=== PATIENT | female | born 1975 | race Caucasian/White ===

== ENCOUNTER 2021-07-15 12:31 | Emergency (ER) | payer BC ==
[~2021-07-15] VITALS: Ht 167 cm; Wt 135.0 kg
[2021-07-15 13:10] LABS: BASOPHILS # (AUTO) 0.1 10^3/uL (0.0-0.1); BASOPHILS % (AUTO) 1 % (0-10); EOSINOPHILS # (AUTO) 0.4 10^3/uL (0.0-0.3); EOSINOPHILS % (AUTO) 5 % (0-10); HEMATOCRIT 39 % (35-52); HEMOGLOBIN 12.4 g/dL (11.5-16.0); LYMPHOCYTES # (AUTO) 2.1 10^3/uL (1.0-4.0); LYMPHOCYTES % (AUTO) 27 % (12-44); MEAN CORPUSCULAR HEMOGLOBIN 27 pg (25-34); MEAN CORPUSCULAR HGB CONC 32 g/dL (32-36); MEAN CORPUSCULAR VOLUME 84 fL (80-99); MEAN PLATELET VOLUME 12.4 fL (9.0-12.2); MONOCYTES # (AUTO) 0.7 10^3/uL (0.0-1.0); MONOCYTES % (AUTO) 9 % (0-12); NEUTROPHILS # (AUTO) 4.7 10^3/uL (1.8-7.8); NEUTROPHILS % (AUTO) 58 % (42-75); PLATELET COUNT 250 10^3/uL (130-400)
[2021-07-15 13:24] LABS: ALBUMIN 4.3 GM/DL (3.2-4.5); CHLORIDE 106 MMOL/L (98-107); POTASSIUM 3.9 MMOL/L (3.6-5.0); SODIUM 141 MMOL/L (135-145)
[2021-07-15 13:25] LABS: CALCIUM 9.1 MG/DL (8.5-10.1)
[2021-07-15 13:26] LABS: GLUCOSE 91 MG/DL (70-105); PROTHROMBIN TIME PATIENT 13.1 SEC (12.2-14.7); TOTAL PROTEIN 7.3 GM/DL (6.4-8.2)
--- NOTE | 2021-07-15 13:27 | ED Respiratory ---
General Chief Complaint: Respiratory Problems Stated Complaint: SOB/POSS PE Nursing Triage Note: ARRIVED VIA AMB TO ROOM 02 WITH COMPLAINTS OF SOA STARTING LAST NIGHT. PT HAD A RECENT TRIP TO [place]. Source: patient Exam Limitations: no limitations (TOMASZ SPAIN APRN) History of Present Illness Date Seen by Provider: Jul 15, 2021 Time Seen by Provider: 13:26 Initial Comments To ER with reports of sudden onset of shortness of breath that began last night. She was seen at urgent care this morning for the symptoms and reported that she had also just returned on from a flight to [place]. They were concerned about a pulmonary embolism and referred her here. She was not hypoxic or tachycardic at urgent care nor is she here. She denies fevers chills or cough. Denies any pre-existing lung conditions. She does report chronic swelling both lower extremities that is no worse or different than usual. No history of pulmonary embolism. She does not smoke. No oral contraceptive use. States that she gets bronchitis a couple of times over the course of the past few years and she did have a cough 4 times today which was nonproductive. Timing/Duration: constant Severity: moderate Associated Symptoms: shortness of breath (TOMASZ SPAIN APRN) Allergies and Home Medications Patient Home Medication List Home Medication List Reviewed: Yes (TOMASZ SPAIN APRN) Albuterol Sulfate (Proair Hfa) 1 Puff Puff, 2 PUFF IH Q4H PRN for SHORTNESS OF BREATH Prescribed by: TOMASZ SPAIN on 07/15/21 1421 Metoprolol Succinate (Toprol Xl) 50 Mg Tab.er.24h, 50 MG PO DAILY Prescribed by: TOMASZ SPAIN on 07/15/21 1428 Review of Systems Review of Systems Constitutional: see HPI EENTM: see HPI Respiratory: see HPI, dyspnea on exertion Cardiovascular: no symptoms reported Genitourinary: no symptoms reported Musculoskeletal: no symptoms reported Skin: no symptoms reported Psychiatric/Neurological: No Symptoms Reported Hematologic/Lymphatic: No Symptoms Reported Immunological/Allergic: no symptoms reported (TOMASZ SPAIN APRN) Past Ucooals-Xpgrne-Izfrtg Hx Patient Social History Alcohol Use?: No (TOMASZ SPAIN APRN) Immunizations Up To Date Second COVID19 Vaccination Jorge: UNKNOWN DATE COVID19 Vaccine Reinsurance Claim Analyst: PATRICIA (TOMASZ SPAIN APRN) Physical Exam Vital Signs - First Documented 07/15/21 12:40 Temp 36.3 Pulse 91 Resp 16 B/P (MAP) 162/92 (115) Pulse Ox 96 O2 Delivery Room Air (GHAZALA MAZARIEGOS MD) Capillary Refill : Less Than 3 Seconds (TOMASZ SPAIN APRN) Height: '" Weight: lbs. oz. kg; 48.00 BMI Method: General Appearance: WD/WN, no apparent distress Eyes: Bilateral Eye Normal Inspection, Bilateral Eye PERRL, Bilateral Eye EOMI HEENT: PERRL/EOMI Neck: non-tender, full range of motion Respiratory: normal breath sounds, no respiratory distress, no accessory muscle use, other (No accessory muscle use no tachypnea lungs are clear with good air movement) Cardiovascular: regular rate, rhythm, no murmur Gastrointestinal: normal bowel sounds, soft Neurologic/Psychiatric: alert, normal mood/affect, oriented x 3 Skin: normal color, warm/dry (TOMASZ SPAIN APRN) Progress/Results/Core Measures Suspected Sepsis SIRS Temperature: Pulse: 91 Respiratory Rate: 16 Laboratory Tests 07/15/21 13:00: White Blood Count 8.0 Blood Pressure 162 /92 Mean: 115 Laboratory Tests 07/15/21 13:00: Creatinine 0.83, INR Comment 1.0, Platelet Count 250, Total Bilirubin 0.5 (TOMASZ SPAIN APRN) Results/Orders Lab Results Laboratory Tests Test 07/15/21 13:00 Range/Units White Blood Count 8.0 4.3-11.0 10^3/uL Red Blood Count 4.67 3.80-5.11 10^6/uL Hemoglobin 12.4 11.5-16.0 g/dL Hematocrit 39 35-52 % Mean Corpuscular Volume 84 80-99 fL Mean Corpuscular Hemoglobin 27 25-34 pg Mean Corpuscular Hemoglobin Concent 32 32-36 g/dL Red Cell Distribution Width 14.5 10.0-14.5 % Platelet Count 250 130-400 10^3/uL Mean Platelet Volume 12.4 H 9.0-12.2 fL Immature Granulocyte % (Auto) 1 % Neutrophils (%) (Auto) 58 42-75 % Lymphocytes (%) (Auto) 27 12-44 % Monocytes (%) (Auto) 9 0-12 % Eosinophils (%) (Auto) 5 0-10 % Basophils (%) (Auto) 1 0-10 % Neutrophils # (Auto) 4.7 1.8-7.8 10^3/uL Lymphocytes # (Auto) 2.1 1.0-4.0 10^3/uL Monocytes # (Auto) 0.7 0.0-1.0 10^3/uL Eosinophils # (Auto) 0.4 H 0.0-0.3 10^3/uL Basophils # (Auto) 0.1 0.0-0.1 10^3/uL Immature Granulocyte # (Auto) 0.0 0.0-0.1 10^3/uL Prothrombin Time 13.1 12.2-14.7 SEC INR Comment 1.0 0.8-1.4 D-Dimer 0.46 0.00-0.49 UG/ML Sodium Level 141 135-145 MMOL/L Potassium Level 3.9 3.6-5.0 MMOL/L Chloride Level 106 98-107 MMOL/L Carbon Dioxide Level 25 21-32 MMOL/L Anion Gap 10 5-14 MMOL/L Blood Urea Nitrogen 17 7-18 MG/DL Creatinine 0.83 0.60-1.30 MG/DL Estimat Glomerular Filtration Rate 87 BUN/Creatinine Ratio 20 Glucose Level 91 70-105 MG/DL Calcium Level 9.1 8.5-10.1 MG/DL Corrected Calcium 8.9 8.5-10.1 MG/DL Total Bilirubin 0.5 0.1-1.0 MG/DL Aspartate Amino Transf (AST/SGOT) 19 5-34 U/L Alanine Aminotransferase (ALT/SGPT) 29 0-55 U/L Alkaline Phosphatase 92 40-136 U/L Troponin I < 0.028 <0.028 NG/ML B-Type Natriuretic Peptide 36.7 <100.0 PG/ML Total Protein 7.3 6.4-8.2 GM/DL Albumin 4.3 3.2-4.5 GM/DL Serum Test, Qualitative NEGATIVE NEGATIVE (GHAZALA MAZARIEGOS MD) Vital Signs/I&O 07/15/21 07/15/21 07/15/21 12:40 12:40 14:28 Temp 36.3 Pulse 91 64 Resp 16 16 B/P (MAP) 162/92 (115) 180/97 Pulse Ox 96 97 O2 Delivery Room Air Room Air Room Air (GHAZALA MAZARIEGOS MD) Vital Signs/I&O Capillary Refill : Less Than 3 Seconds (TOMASZ SPAIN APRN) Blood Pressure Mean: 115 Departure Communication (Admissions) 1420-blood pressure initially 160/95, then on recheck was up to 180/97. Heart rate in the 90s. She does not take anything for blood pressure and states that she typically runs in the 130s. Unclear if this is just a situational anxiety causing elevation of blood pressure. She does have a blood pressure cuff at home, seems reliable. I discussed with her that I would give her a prescription for some blood pressure medication and she should initiate that if her blood pressure is over 140 on the top when checked at home while relaxed. She agrees [facility]. She has had pulmonary function tests done without cause identified for her intermittent shortness of breath over the past few years. Discussed with her the need to follow-up with cardiology to discuss a stress test. She will follow up with primary care provider to help facilitate that. SpO2 98% room air (TOMASZ SPAIN APRN) Impression Primary Impression: Dyspnea Disposition: HOME, SELF-CARE Condition: Stable Departure-Patient Inst. Decision time for Depature: 14:21 (TOMASZ SPAIN APRN) Referrals: NO,LOCAL PHYSICIAN (PCP/Family) Primary Care Physician Patient Instructions: Shortness of Breath (Dyspnea) Add. Discharge Instructions: Use the inhaler 2 puffs every 4 hours. Return to ER for any concerns. Follow- up with your doctor next week. All discharge instructions reviewed with patient and/or family. Voiced understanding. Scripts Metoprolol Succinate (Toprol Xl) 50 Mg Tab.er.24h 50 MG PO DAILY, #30 TAB Prov: TOMASZ SPAIN APRN 07/15/21 Albuterol Sulfate (PROAIR HFA) 1 Puff Puff 2 PUFF IH Q4H PRN for SHORTNESS OF BREATH, #1 EA 1 PUFF = 90 MCG Prov: TOMASZ SPAIN APRN 07/15/21 ATTENDING PHYSICIAN NOTE: I was physically present as attending physician in the emergency department during the care of this patient, but I was not directly involved in the decision making or delivery of care for this patient. (GHAZALA MAZARIEGOS MD) TOMASZ SPAIN APRN Jul 15, 2021 13:27 GHAZALA MAZARIEGOS MD Jul 16, 2021 13:42
[2021-07-15 13:28] LABS: BILIRUBIN,TOTAL 0.5 MG/DL (0.1-1.0); CARBON DIOXIDE 25 MMOL/L (21-32)
[2021-07-15 13:30] LABS: ALKALINE PHOSPHATASE 92 U/L (40-136); CREATININE SERUM 0.83 MG/DL (0.60-1.30); GFR ESTIMATED 87
[2021-07-15 13:31] LABS: BUN/CREATININE RATIO 20
[2021-07-15 13:33] LABS: ALANINE AMINOTRANSFERASE 29 U/L (0-55)
--- NOTE | 2021-07-15 14:17 | Diagnostic Imaging Report ---
EXAMINATION: Chest 1 view HISTORY: Shortness of breath. COMPARISON: None available. FINDINGS: The lung volumes are normal. No focal consolidation is seen. No large pleural effusion or pneumothorax is seen. The cardiomediastinal silhouette is normal in size and contour. No acute osseous abnormality is seen. IMPRESSION: 1. No acute pleuroparenchymal process. Dictated by: Dictated on workstation # [id number]
[2021-07-15] MEDS ORDERED: RT-ALBUINH IH (14:21)
[2021-07-15 14:28] VITALS: BP 180/97
[2021-07-15] MEDS ORDERED: METO-352 PO (14:28)
== END 2021-07-15 14:28 | disposition home or self-care (01) ==
LOC: ER 12:33
DX: R06.02 Shortness of breath (principal); Z32.02 Encounter for pregnancy test, result negative
CPT/HCPCS: 36415; 71045; 80053; 83880; 84484; 84703; 85025; 85379; 85610; 93005

== ENCOUNTER → 2021-08-23 | Outpatient (CLI) | payer BC ==
[~2021-08-23] MED LIST: METO-352 PO; RT-ALBUINH IH
== END ==
LOC: CARD 08:30
PROVIDERS: ATTEND Internal Medicine Cardiovascular Disease
DX: Z51.11 Encounter for antineoplastic chemotherapy (principal); I11.9 Hypertensive heart disease without heart failure; I25.10 Atherosclerotic heart disease of native coronary artery without angina pectoris
CPT/HCPCS: 93306

== ENCOUNTER → 2021-09-11 | Outpatient (CLI) | payer BC ==
[~2021-09-11] MED LIST changes: +CATHETER FLUSH 10 ML SYR IVP PRN
[2021-09-11 09:14] VITALS: BP 105/73
--- NOTE | 2021-09-11 12:06 | Cardiology Stress Test Report ---
Stress Test Report Date of Procedure/Referring: Date of Procedure: September 11, 2021 PCP No,Local Physician Admitting Physician Admitting Physician: Attending Physician: Deann Schuster MD Indications: HTN Baseline Heart Rate: 73 Baseline Blood Pressure: Blood Pressure Systolic: 105 Blood Pressure Diastolic: 73 Vital Signs Date Time Temp Pulse Resp B/P (MAP) Pulse Ox O2 Delivery O2 Flow Rate FiO2 09/11/21 09:14 73 105/73 (84) 99 Baseline Vital Signs Vital Signs Date Time Temp Pulse Resp B/P (MAP) Pulse Ox O2 Delivery O2 Flow Rate FiO2 09/11/21 09:14 73 105/73 (84) 99 Baseline EKG: Baseline EKG: NSR Summary: After explaining the procedure and details to the patient, she signed the consent and was brought to the stress nuclear laboratory. Patient exercised on standard Shayan protocol, EKG, heart rate and blood pressure were monitored continuously, resting and stress doses of radio tracer were injected, imaging was acquired and reviewed in the short axis, horizontal long axis and vertical long axis views Patient was able to exercise for a total of 5 minutes on Shayan protocol, METs 7 Maximum heart rate 159 Maximum blood pressure 184/82 Stress EKG, Minimal nondiagnostic changes Recovery EKG, Return to baseline TID: 0.99 SSS: 5 SDS: 5 EF: 72 Conclusion: 1. Fair exercise tolerance for a total of 5 minutes on standard Shayan protocol, 7 METS. Achieving 91% of maximum expected heart rate 2. Appropriate heart rate response to exercise with hypertensive response to exercise with peak blood pressure 184/82 return to baseline during recovery 3. Nondiagnostic EKG changes with exercise return to baseline during recovery 4. Breast attenuation with reversible ischemia involving the basal to mid anterior wall 5. Normal left ventricular size, ejection fraction 72% DEANN SCHUSTER MD September 11, 2021 12:05
== END ==
LOC: CARD 07:30
PROVIDERS: ATTEND Internal Medicine Cardiovascular Disease
DX: I10 Essential (primary) hypertension (principal); I25.10 Atherosclerotic heart disease of native coronary artery without angina pectoris
CPT/HCPCS: 78452; 93017; A9502